=== PATIENT | male | born 1995 | race American Indian/Alaskan Native ===

== ENCOUNTER 2016-12-05 15:19 | Emergency (ER) | payer SELFPAY ==
[2016-12-05 15:30] VITALS: BP 160/115
== END 2016-12-05 15:26 | disposition left against medical advice (07) ==
LOC: ED 15:19
DX: R07.89 Other chest pain (principal); Z53.21 Procedure and treatment not carried out due to patient leaving prior to being seen by health care provider
CPT/HCPCS: 93005; 93010

== ENCOUNTER 2018-06-26 09:48 | Outpatient (CLI) | payer MEDICAID | END 2018-06-26 09:49 | disposition home or self-care (01) | LOC: ECHO 09:48 | PROVIDERS: ATTEND Internal Medicine Cardiovascular Disease | DX: I11.0 Hypertensive heart disease with heart failure (principal); I50.9 Heart failure, unspecified | CPT/HCPCS: 93306 ==